=== PATIENT | female | born 1995 | race Caucasian/White ===

== ENCOUNTER 2018-08-20 06:01 | Inpatient (IN) ==
[2018-08-20] MEDS ORDERED: MEPERIDINE 50 MG/1 ML VIAL IV PRN (06:20)
[2018-08-20] MEDS ORDERED: ONDANSETRON 4 MG/2 ML VIAL IV PRN (06:20)
[2018-08-20] MEDS ORDERED: INFLUENZA VIRUS VACCINE 0.5 ML SYRINGE IM ONE (06:30)
[2018-08-20] MEDS: LACTATED RINGERS 1,000 ML IV SCH ×2 (06:35→09:46)
[2018-08-20 06:37] LABS: Basophils % 0.2 % (0.0-0.8); Eosinophils % 0.3 % (0.00-10.9); Immature Granulocytes % 0.5 %; Immature Granulocytes Absolute 0.05 #; Lymphocytes # 2.6 10*3/uL (1.4-4.0); Lymphocytes % 24.8 % (21.3-54.2); Mean Corpuscular HGB Conc 32.3 GM/DL (32-36); Mean Corpuscular Hemoglobin 26 PG (27-34); Mean Corpuscular Volume 80.9 FL (87-102); Mean Platelet Volume 10.2 FL (9.6-12.0); Monocytes # 0.7 10*3/uL (0.11-0.8); Monocytes % 6.5 % (1.7-12.7); Neutrophils # 7.2 10*3/uL (1.4-7.4); Neutrophils % 67.7 % (38.7-73.9); Platelet Count 259 T/CUMM (130-400); Red Blood Count 3.83 MC/CUMM (3.8-5.5); Red Cell Distribution Width 13.9 % (9.3-17.3); White Blood Count 10.5 T/CUMM (4-12)
[2018-08-20 06:56] LABS: Albumin 2.6 G/DL (3.4-5.0); Bilirubin,Total 0.4 MG/DL (0.2-1.0); Calcium 8.7 MG/DL (8.5-10.1); Osmolality,Calculated 270.8 MOS/KG (273-304); Potassium 3.7 MMOL/L (3.5-5.1); Total Protein 7.2 G/DL (6.4-8.3)
[2018-08-20] MEDS: OXYTOCIN/LR 20 UNIT/1,000 ML BAG IV SCH (07:27)
[2018-08-20] MEDS ORDERED: ALUMINUM/MAGNES/SIMETH MAX STR 30 ML UDCUP PO PRN (08:48)
[2018-08-20] MEDS ORDERED: hydrOXYzine HCL 25 MG/1 ML VIAL IM PRN (11:27)
[2018-08-20] MEDS ORDERED: diphenhydrAMINE 50 MG/1 ML VIAL IV PRN ×2 (11:27)
[2018-08-20] MEDS ORDERED: CITRIC ACID/SODIUM CITRATE 30 ML UDCUP PO ONE (11:27)
[2018-08-20] MEDS ORDERED: ePHEDrine 50 MG/ML AMP IV PRN (11:27)
[2018-08-20] MEDS ORDERED: PROMETHAZINE 25 MG/1 ML VIAL IM ONE (11:27)
[2018-08-20] MEDS ORDERED: LACTATED RINGERS 1,000 ML IV ONE (11:27)
[2018-08-20] MEDS ORDERED: NALOXONE 0.4 MG/ML VIAL IV PRN (11:27)
[2018-08-20] MEDS ORDERED: FAMOTIDINE 20 MG/2 ML VIAL IV ONE (11:27)
[2018-08-20] MEDS ORDERED: METHYLERGONOVINE 0.2 MG/1 ML AMP ONE (13:22)
[2018-08-20] MEDS ORDERED: miSOPROStol 200 MCG TABLET ONE (13:22)
[2018-08-20] MEDS ORDERED: CARBOPROST TROMETHAMINE 250 MCG/ML AMP IM ONE (13:22)
[2018-08-20 13:28] LABS: Apearance,Urine CLEAR (Clear); Bilirubin,Urine Negative (Negative); Blood, Urine Small mg/dL (Negative); Glucose,Urine (UA) Negative (Negative); Hyaline Casts,Urine 1 /LPF (0-3); Ketones,Urine 5 mg/dL (Negative); Mucus,Urine Occasional /LPF (Occasional); Nitrite,Urine Negative (Negative); Protein,Urine Negative; RBC,Urine 27 /HPF (0-4); Squamous Epithelial Cell,Urine Occasional /HPF (0-10); Urine Color Yellow (Yellow); Urine Urobilinogen < 2.0 EU/DL (0.2-1.0); WBC,Urine 3 /HPF (0-6)
[2018-08-21 05:35] LABS: Basophils % 0.4 % (0.0-0.8); Eosinophils % 0.4 % (0.00-10.9); Hematocrit 26.6 VOL% (35.7-47.0); Hemoglobin 8.4 GM/DL (12.0-16.0); Immature Granulocytes % 0.3 %; Immature Granulocytes Absolute 0.03 #; Lymphocytes # 2.1 10*3/uL (1.4-4.0); Lymphocytes % 23.3 % (21.3-54.2); Mean Corpuscular HGB Conc 31.6 GM/DL (32-36); Mean Corpuscular Hemoglobin 26 PG (27-34); Mean Corpuscular Volume 82.1 FL (87-102); Mean Platelet Volume 10.7 FL (9.6-12.0); Monocytes # 0.8 10*3/uL (0.11-0.8); Monocytes % 8.3 % (1.7-12.7); Neutrophils # 6.1 10*3/uL (1.4-7.4); Neutrophils % 67.3 % (38.7-73.9); Platelet Count 218 T/CUMM (130-400); Red Blood Count 3.24 MC/CUMM (3.8-5.5); Red Cell Distribution Width 13.9 % (9.3-17.3); White Blood Count 9.1 T/CUMM (4-12)
[2018-08-21] MEDS ORDERED: WITCH HAZEL PADS 100/JAR TOP PRN (07:29)
[2018-08-21] MEDS ORDERED: HYDROCORTISONE 2.5% RECTAL CREAM 30 GM TUBE TOP PRN (07:30)
[2018-08-21] MEDS: IBUPROFEN 800 MG TABLET PO PRN ×2 (07:32→18:15)
[2018-08-21] MEDS: DOCUSATE SODIUM 100 MG CAPSULE PO SCH ×3 (07:40→20:23)
[2018-08-21] MEDS: fentaNYL 2 MCG/ROPIV 0.2% EPID 100 ML EPIDURAL SCH (17:53)
[2018-08-21] MEDS: LACTATED RINGERS 1,000 ML IV SCH ×2 (17:55→17:56)
[2018-08-21] MEDS: OXYTOCIN/LR 20 UNIT/1,000 ML BAG IV SCH (17:57)
[2018-08-22 07:33] VITALS: BP 108/61
[2018-08-22] MEDS: DOCUSATE SODIUM 100 MG CAPSULE PO SCH (09:55)
[2018-08-22] MEDS ORDERED: DIPH/TET/ACEL PERT BOOSTER VACCINE 0.5 ML VIAL IM ONE (11:08)
== END 2018-08-22 13:50 | disposition home or self-care (01) | DRG 560 ==
LOC: N.LDOUT 06:01 → N.LD 06:03 → N.OB 16:52
PROVIDERS: ADMIT Obstetrics & Gynecology; ATTEND Obstetrics & Gynecology